=== PATIENT | female | born 1955 | race Caucasian/White ===

== ENCOUNTER 2021-02-05 12:17 | Day surgery (SDC) | payer OTHER ==
[2021-02-01 15:47] LABS: BASOPHILS % (AUTO) 0.4 % (0-1); EOSINOPHILS # (AUTO) 0.1 X10'3 (0-0.9); EOSINOPHILS % (AUTO) 1.1 % (0-6); LYMPHOCYTES # (AUTO) 1.2 X10'3 (1.1-4.8); MEAN CORPUSCULAR HEMOGLOBIN 32.1 PG (27.0-31.0); MEAN CORPUSCULAR HGB CONC 33.6 g/dL (33.0-36.5); MEAN CORPUSCULAR VOLUME 95.6 FL (78-98); MEAN PLATELET VOLUME 7.6 FL (7.4-10.4); MONOCYTES # (AUTO) 0.4 X10'3 (0-0.9); MONOCYTES % (AUTO) 7.2 % (2-12); NEUTROPHILS # (AUTO) 4.5 X10'3 (1.8-7.7); NEUTROPHILS % (AUTO) 72.3 % (42-75); PRE OP HEMOGLOBIN 15.1 g/dL (12.0-16.0); PRE OP PLATELET COUNT 214 X10'3 (140-440); RED BLOOD COUNT 4.71 X10'6 (4.20-5.60); RED CELL DISTRIBUTION WIDTH 12.2 % (11.5-14.5)
[2021-02-01 15:49] LABS: CLARITY,URINE CLEAR (Clear); COLOR,URINE YELLOW (Yellow); GLUCOSE, URINE NEGATIVE (Neg); KETONES,URINE NEGATIVE (Neg); LEUKOCYTE ESTERASE ,URINE NEGATIVE (Neg); NITRITES, URINE NEGATIVE (Neg); OCCULT BLOOD,URINE NEGATIVE (Neg); PH,URINE 7.5 (4.8-8.0); PROTEIN,URINE NEGATIVE (Neg); UROBILINOGEN,URINE 0.2 E.U/dL (0.2-1.0)
[2021-02-01 15:52] LABS: UA COLLECTION TYPE CLN CATCH MIDSTREAM
[2021-02-01 16:00] LABS: ALBUMIN 3.9 G/DL (3.4-5.0); ALBUMIN/GLOBULIN RATIO 1.2 (1.1-1.5); ALKALINE PHOSPHATASE 93 IU/L (46-116); BLOOD UREA NITROGEN 10 MG/DL (7-18); BUN/CREATININE RATIO 12.8 (6.6-38.0); CALCIUM 9.3 MG/DL (8.5-10.1); CHLORIDE 105 MMOL/L (99-107); CREATININE 0.78 MG/DL (0.40-0.90); PRE OP ALT 40 U/L (30-65); PRE OP ANION GAP 9 (8-16); PRE OP AST 32 U/L (10-37); PRE OP BILIRUB, TOTAL 0.5 MG/DL (0.0-1.0); PRE OP GLUCOSE 103 MG/DL (70-104); PRE OP POTASSIUM 4.1 MMOL/L (3.4-5.1); PRE OP SODIUM 143 MMOL/L (135-145); TOTAL CARBON DIOXIDE 28.9 MMOL/L (24-32); TOTAL PROTEIN 7.2 G/DL (6.4-8.2); eGFR 74 ML/MIN
[2021-02-05] VITALS (7 sets, daily range): BP systolic 116–144; BP diastolic 73–78
[~2021-02-05] VITALS: Ht 154.9 cm; Wt 72.2 kg
[~2021-02-05 12:17] MED LIST: ASPI-611 PO; CALC600T62 PO; CHOL10008 PO; IRON PO; LEVO50CA4 PO; PRED1TAB PO; VITA-268 PO; cefazolin/dext.iso 2gm/100ml IV ONE; famotidine 20mg tablet PO ONE; ringers solution, lacted 1,000 ML IV SCH
[2021-02-05] MEDS ORDERED: proCHLORperazine 10 MG/2 ml inj IV PRN (15:15)
[2021-02-05] MEDS ORDERED: meperidine/PF 25mg/ml syringe IV PRN ×3 (15:15)
[2021-02-05] MEDS ORDERED: ondansetron/PF 4mg/2ml inj IV PRN (15:15)
[2021-02-05] MEDS ORDERED: morphine 4 MG/ML inj SYRINge IV PRN (15:15)
[2021-02-05] MEDS ORDERED: morphine 2 MG/ML inj. syringe IV PRN (15:15)
[2021-02-05] MEDS ORDERED: ringers solution, lacted 1,000 ML IV SCH (15:15)
[2021-02-05] MEDS ORDERED: dexamethasone sod phosphate 10mg/ml inj ONE (16:28)
[2021-02-05] MEDS ORDERED: sevoflurane 250ml liquid IH ONE (16:28)
[2021-02-05] MEDS ORDERED: LIDOcaine 1%/PF 5ML 10 MG/ML VIAL ONE (16:28)
[2021-02-05] MEDS ORDERED: propofol inj 20 ML IV ONE (16:30)
[2021-02-05] MEDS ORDERED: fentaNYL/PF 50MCG/1 ML 2ML syringe ONE (16:30)
[2021-02-05] MEDS ORDERED: MIDAZolam 1 MG/ML 5ML VIAL ONE (16:30)
[2021-02-05] MEDS ORDERED: ROPIVAcaine 0.5% (5mg/ml) 30ml vial ONE (16:30)
[2021-02-05] MEDS ORDERED: ondansetron/PF 4mg/2ml inj ONE (17:04)
[2021-02-05] MEDS ORDERED: mupirocin 2% ointment 22GM ONE (17:45)
[2021-02-05] MEDS ORDERED: bacitracin 15gm ointment TP ONE (18:10)
--- NOTE | 2021-02-05 18:53 | NUR ---
Received from OR via [facility] , accompanied by Anesthesiologist DOMINIC and report given by Anesthesiolgist. PATIENT WITH 20G PIV IN RIGHT UE RUNNING LR AT 100. DENIES PAIN CURRENTLY. VSS. LEFT LE IN BOOT AND IS CDI CURRENTLY. Addendum: 02/05/21 at 1907 by Esteban Mahan RN, RN Amended: Links added.
--- NOTE | 2021-02-05 19:43 | NUR ---
ALL DISCHARGE CRITERIA HAS BEEN MET. VSS, PAIN AT A TOLERABLE LEVEL, VOIDING AND ABLE TO SAFELY AMBULATE AND TRANSFER SELF. IV TAKEN OUT WITHOUT ANY COMPLICATIONS. ALL DISCHARGE INSTRUCTIONS COVERED WITH PATIENT AND ALL QUESTIONS ANSWERED. PATIENT TAKEN OUT VIA WHEELCHAIR TO PERSONAL VEHICLE WHERE FAMILY/FRIEND DROVE PATIENT HOME. PATIENT VOIDED AND STOOD AND PIVOTED 3 X'S WITH NWB STATUS. VSS. WEDGE PROVIDED TO ASSIST IN ELEVATION. DISCUSSED ISOMETRIC EXERCISES WELL. Addendum: 02/05/21 at 2005 by Esteban Mahan RN, RN Amended: Links added.
== END 2021-02-05 19:43 | disposition home or self-care (01) ==
LOC: PAS 12:17
PROVIDERS: ATTEND Podiatrist Foot & Ankle Surgery
DX: M20.12 Hallux valgus (acquired), left foot (principal); M19.072 Primary osteoarthritis, left ankle and foot; M20.42 Other hammer toe(s) (acquired), left foot; G89.18 Other acute postprocedural pain
CPT/HCPCS: 28270; 28285; 28297; 36415; 64445; 64447; 73620; 76000; 76942; 80053; 81003; 82948; 85025; 93005; A6223; C1713; J1100; J2250; J2405; J2704; J3010; A4618; A6253; A6449; A7000; J2795; J7120